=== PATIENT | male | born 1965 | race Caucasian/White ===

== ENCOUNTER 2016-10-18 18:34 | Emergency (ER) | payer MEDICAID ==
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
[2016-10-18] MEDS ORDERED: LORazepam 2 MG/ML INJ IVP ONE (18:46)
[2016-10-18] MEDS ORDERED: NS 1,000 ML IV ONE (19:28)
[2016-10-18 20:45] VITALS: BP 128/78; PULSE 74; RESP 16; TEMP 98.4; O2SAT 94
== END 2016-10-18 20:43 | disposition home or self-care (01) ==
DX: R25.1 Tremor, unspecified (principal)
CPT/HCPCS: 96374; J2060

== ENCOUNTER 2018-02-26 04:52 | Emergency (ER) | payer MEDICAID ==
[2018-02-26 05:00] VITALS: BP 133/97
--- NOTE | 2018-02-26 05:03 | EDPHY ---
H & P Stated Complaint: rash x24 hrs, bed bugs, used someone's sleeping bag Time Seen by Provider: 02/26/18 05:03 HPI/ROS: HPI CHIEF COMPLAINT: Bug bites all over. HISTORY OF PRESENT ILLNESS: 52-year-old male, homeless, states he used a sleeping bag that was not his and then developed itching all over. He states he thinks he has bed bugs all over. He has been itching. No fever. Denies chest pain shortness of breath or any other illness. Past Medical History: Homeless. Past Surgical History: No recent surgical history Social History: Homeless. Family History: Noncontributory. ROS REVIEW OF SYSTEMS: 10 Systems were reviewed and negative with the exception of the elements mentioned in the history of present illness. Exam Constitutional nontoxic, triage nursing summary reviewed, vital signs reviewed , awake/alert. Eyes normal conjunctivae and sclera, EOMI, PERRLA. HENT normal inspection, atraumatic, moist mucus membranes, no epistaxis, neck supple/ no meningismus, no raccoon eyes. Respiratory clear to auscultation bilaterally, normal breath sounds, no respiratory distress, no wheezing. Cardiovascular rate normal, regular rhythm, no murmur, no edema, distal pulses normal. Gastrointestinal soft, non-tender, no rebound, no guarding, normal bowel sounds, no distension, no pulsatile mass. Genitourinary no CVA tenderness. Musculoskeletal no midline vertebral tenderness, full range of motion, no calf swelling, no tenderness of extremities, no meningismus, good pulses, neurovascularly intact. Skin pink, warm, & dry, no rash, skin atraumatic. Neurologic awake, alert and oriented x 3, AAOx3, moves all 4 extremities equally, motor intact, sensory intact, CN II-XII intact, normal cerebellar, normal vision, normal speech. Psychiatric normal mood/affect. Heme/Lymph/Immune no lymphadenopathy. Differential Diagnosis: Includes but is not limited to in a particular order bedbugs, scabies, other contact dermatitis. Medical Decision Making: Plan for this patient permethrin cream here. Rub on leave for prolonged period of time. Return precautions discussed with patient is comfortable this plan. Source: Patient - Personal History Current Tetanus Diphtheria and Acellular Pertussis (TDAP): No - Medical/Surgical History Hx Asthma: No Hx Chronic Respiratory Disease: No Hx Diabetes: No Hx Cardiac Disease: No Hx Renal Disease: No Hx Cirrhosis: No Hx Alcoholism: Yes Hx HIV/AIDS: No Hx Splenectomy or Spleen Trauma: No Other PMH: etoh abuse - Social History Smoking Status: Heavy smoker Constitutional: Initial Vital Signs Temperature (C) 36.8 C 02/26/18 04:59 Heart Rate 99 02/26/18 04:59 Respiratory Rate 20 02/26/18 04:59 Blood Pressure 133/97 H 02/26/18 04:59 O2 Sat (%) 96 02/26/18 04:59 O2 Delivery Mode Room Air Allergies/Adverse Reactions: amoxicillin Allergy (Verified 02/26/18 04:59) Home Medications: Medication Instructions Recorded NK [No Known Home Meds] 10/18/16 Departure - Departure Disposition: Home, Routine, Self-Care Clinical Impression: Bug bites Condition: Good Instructions: Insect Bite or Sting (ED) Referrals: NONE *PRIMARY CARE P,. [Primary Care Provider] - As per Instructions
[2018-02-26] MEDS ORDERED: PERMETHRIN 5% 60 GM CREAM TP ONE (05:09)
== END 2018-02-26 05:37 | disposition home or self-care (01) ==
DX: B86 Scabies (principal); F17.200 Nicotine dependence, unspecified, uncomplicated; Z59.0 Homelessness

== ENCOUNTER 2018-07-15 19:08 | Emergency (ER) | payer MEDICAID ==
[~2018-07-15 19:08] MED LIST: PERMETHRIN 5% 60 GM CREAM TP SCH
--- NOTE | 2018-07-15 19:30 | EDPHY ---
H & P Time Seen by Provider: 07/15/18 19:12 HPI/ROS: Chief complaint: Bed bug bites History of present illness: This is a 53-year-old male who presents to the emergency department concerned he has bed bug bites. He believes he is covered and bed bugs. He has multiple lesions to his body. They are very itchy. He is homeless. He [facility] [place] [facility]. This is where he believes he picked up the parasites. He denies other associated signs or symptoms. Smoking Status: Heavy smoker Physical Exam: General Appearance: Alert and no distress. Eyes: Pupils equal and round no injection. Respiratory: Chest is non tender, lungs are clear to auscultation. Cardiac: regular rate and rhythm Musculoskeletal: Ambulating without difficulty. Neck is supple and non tender. Extremities have full range of motion and are non tender. Skin: Extensive lesions to the body most consistent with scabies including the interdigital web space, burrowing and some crusting. Constitutional: Initial Vital Signs Temperature (C) 36.9 C 07/15/18 19:26 Heart Rate 83 07/15/18 19:26 Respiratory Rate 16 07/15/18 19:26 Blood Pressure 99/64 L 07/15/18 19:26 O2 Sat (%) 97 07/15/18 19:26 O2 Delivery Mode Room Air Allergies/Adverse Reactions: amoxicillin Allergy (Verified 07/15/18 19:27) Home Medications: Medication Instructions Recorded Permethrin 5% [Elimite 5%] 60 vanessa TP ONCE #1 tube 07/15/18 MDM/Departure - MDM ED Course/Re-evaluation: Patient seen under the supervision of my secondary supervising physician Dr. Marcia Miranda. Patient presents concerned he has bed bugs. Does appear to have a parasitic infection. Likely scabies. I have discussed with him that he will need to go to [facility] [place] [facility]. Thoroughly launder all of his clothes. He is given a spare set of scrubs so he can wonders clothes. After launder his clothes he should apply permethrin and leave it on overnight. He is given a tube of permethrin. He is to follow up with a primary care doctor as well. Return precautions given. - Depart Disposition: Home, Routine, Self-Care Clinical Impression: Rash Condition: Good Instructions: Scabies (ED), Bed Bugs (ED) Additional Instructions: Follow-up with a primary care doctor for continued evaluation and care Use the cream you have been given after you have cleaned your close If symptoms worsen or new symptoms develop return to the emergency room for recheck Prescriptions: Permethrin 5% [Elimite 5%] 60 vanessa TP ONCE #1 tube Referrals: Patient,NotPresent [Unknown] - As per Instructions [facility],. [Clinic] - As per Instructions
[2018-07-15 20:25] VITALS: BP 99/64
== END 2018-07-15 20:28 | disposition home or self-care (01) ==
LOC: EDUNIT#
DX: R21 Rash and other nonspecific skin eruption (principal); Z59.0 Homelessness

== ENCOUNTER 2018-09-29 09:39 | Emergency (ER) | payer MEDICAID ==
[2018-09-29 09:43] VITALS: BP 123/95
[2018-09-29] MEDS ORDERED: CEPHALEXIN 500 MG CAP PO ONE (09:51)
[2018-09-29] MEDS ORDERED: SULFAMETHOX/TMP 800/160 MG 1 TAB PO ONE (09:51)
--- NOTE | 2018-09-29 09:51 | EDPHY ---
H & P Stated Complaint: increased swelling and pain to left index finger. Source: Patient Exam Limitations: No limitations - Personal History Current Tetanus Diphtheria and Acellular Pertussis (TDAP): Yes - Medical/Surgical History Hx Asthma: No Hx Chronic Respiratory Disease: No Hx Diabetes: No Hx Cardiac Disease: No Hx Renal Disease: No Hx Cirrhosis: No Hx Alcoholism: Yes Hx HIV/AIDS: No Hx Splenectomy or Spleen Trauma: No Other PMH: etoh abuse, depression - Social History Smoking Status: Heavy smoker Time Seen by Provider: 09/29/18 09:44 HPI/ROS: HPI: This is a 53-year-old male who presents with Chief Complaint: increased swelling and pain to left index finger. Location: Left index finger Quality: Swelling and pain Duration: 24-48 hours Signs and Symptoms: No bleeding, no radiation, no numbness, no weakness, no tingling, no incontinence, no decreased range of motion, + swelling, + pain, no fever, + skin color changes Timing: Gradually worsened Severity: [id number] Context: Patient is right-hand dominant, presents with left index finger redness and swelling near the inferior base of his fingernail. Patient does not remember any trauma. No history of diabetes mellitus. Is a transient and sleeps outside. Reports tetanus is current. Took ibuprofen early this morning with no pain relief. Allergy to amoxicillin causing rash. Denies radiation, weakness, decreased range of motion, fever, discharge. Reports redness in the area. Modifying Factors: Ibuprofen with minimal pain relief Comment: ROS: A comprehensive 10 system review of systems is otherwise negative aside from elements mentioned in the history of present illness. MEDICAL/SURGICAL/SOCIAL HISTORY: Medical history: Alcohol abuse, depression Surgical history: Denies Social history: Heavy tobacco user. Transient. Single. CONSTITUTIONAL: Well-developed, well-nourished, untidy with poor personal hygiene middle-aged white male who is polite and cooperative, awake and alert, no obvious distress HEENT: Atraumatic and normocephalic, PERRL, EOMI. Nares patent; no rhinorrhea; no nasal mucosal edema. Tympanic membranes clear. Oropharynx clear, no exudate and moist pink mucosa. Airway patent. No lymphadenopathy. No meningismus. Cardiovascular: Normal S1/S2, regular rate, regular rhythm, without murmur rub or gallop. PULMONARY/CHEST: Symmetrical and nontender. Clear to auscultation bilaterally. Good air movement. No accessory muscle usage. ABDOMEN: Soft, nondistended, nontender, no rebound, no guarding, no peritoneal signs, no masses or organomegaly. No CVAT. EXTREMITIES: 2/2 radial pulses, regional business manager strength 5/5, left index finger at the base of the inferior fingernail shows a fluctuant raised area with mild surrounding erythema and tenderness to palpation. Negative Kanavel's sign. DIP /PIP/MCP joints have full range of flexion and extension with good light touch sensation. no clubbing, no cyanosis or edema. NEUROLOGICAL: no focal neuro deficits. GCS 15. SKIN: Warm and dry, leathery, thickened hypertrophic fingernails, no rash. Good capillary refill. (Deepa Au) Constitutional: Initial Vital Signs Heart Rate 104 H 09/29/18 09:41 Respiratory Rate 18 09/29/18 09:41 Blood Pressure 123/95 H 09/29/18 09:41 O2 Sat (%) 100 09/29/18 09:41 O2 Delivery Mode Room Air Allergies/Adverse Reactions: amoxicillin Allergy (Verified 07/15/18 19:27) Home Medications: Medication Instructions Recorded Cephalexin [Keflex (*)] 500 mg PO TID #21 cap 09/29/18 Sulfamethox/Tmp 800/160 mg 1 tab PO BID #14 tab 09/29/18 [Bactrim Ds] Medical Decision Making Procedures: Procedure: Abscess drainage. The patient's abscess was located on the left index finger inferior nail base. I obtained verbal consent from the patient to drain the abscess who was informed about the possibility of bleeding and pain. The abscess was incised with 18 gauge needle and a 2 mL amount of purulent drainage was expressed. I irrigated the wound , Xeroform and clean sterile dressing. The patient tolerated the procedure well. The procedure was performed by myself. Procedure: Splint placement. An aluminum finger splint was applied. After application of the splint I returned and re-examined the patient. The splint was adequately immobilizing the joint and distal to the splint the patient's circulation and sensation was intact. (Deepa Au) ED Course/Re-evaluation: Vital signs reviewed and show mild tachycardia. Tetanus booster up-to-date. Local anesthesia provided with adequate pain relief Soaked in a solution of 50/50 warm water and betadine for 30 minutes and copiously irrigated When a provided local anesthesia with 22 gauge needle; 2 mL of purulent discharge expressed Xeroform and clean sterile dressing applied Placed in aluminum finger splint for immobilization for the next 2-3 days Given Keflex and Bactrim in the ER and prescriptions for same Verbal and written wound care instructions provided Given clean sterile dressing and bacitracin to take home for wound care over the next several days. This is a localized infection and there are no signs of tenosynovitis No signs of neurovascular compromise/tenting of skin/compartment syndrome/ extremities and joints examined above and below area of concern and are neurovascularly intact. This patient was seen under the supervision of my secondary supervising physician. I evaluated and cared for this patient with attending. (Deepa Au) I did not see this patient while he was in the emergency department. However his care was discussed with the PA while the patient was in the department. I agree with treatment plan and management (Marco A Jacobsen) Differential Diagnosis: Differential diagnosis includes but is not limited to paronychia, abscess, cellulitis, tenosynovitis. (Deepa Au) - Data Points Medications Given: Discontinued Medications Cephalexin HCl (Keflex) 500 mg PO EDNOW ONE PRN Reason: Protocol Stop: 09/29/18 09:52 Last Admin: 09/29/18 10:09 Dose: 500 mg Trimethoprim/Sulfamethoxazole (Bactrim Ds) 1 ea PO EDNOW ONE PRN Reason: Protocol Stop: 09/29/18 09:52 Last Admin: 09/29/18 10:08 Dose: 1 ea Departure - Departure Disposition: Home, Routine, Self-Care Clinical Impression: Abscess of left index finger Condition: Good Instructions: Abscess (ED), Abscess Incision and Drainage (DC) Additional Instructions: Keep the splint and dressing dry and in place for 2-3 days. After 2-3 days, you may remove the splint and dressing; wash the site daily with mild soap and water; then pat dry. Apply topical antibiotic ointment and keep covered with sterile dressing until fully healed. Do not soak in a bathtub or go swimming until fully healed. Take Keflex and Bactrim x7 days. Do not skip a dose. Take Tylenol 650 mg every 4 hours and/or Ibuprofen 600 mg every 8 hours with food as needed for pain. Follow up with [facility] in 5-7 days if no improvement in symptoms. Referrals: [facility],. [Clinic] - 5-7 days, if not improved Prescriptions: Cephalexin [Keflex (*)] 500 mg PO TID #21 cap Sulfamethox/Tmp 800/160 mg [Bactrim Ds] 1 tab PO BID #14 tab
== END 2018-09-29 10:30 | disposition home or self-care (01) ==
PROC: 0H9GXZZ Drainage of Left Hand Skin, External Approach (ICD-10-PCS; principal; 2018-09-29)
DX: L02.512 Cutaneous abscess of left hand (principal); F17.200 Nicotine dependence, unspecified, uncomplicated
CPT/HCPCS: L3925